=== PATIENT | male | born 1990 | race African-American/Black ===

== ENCOUNTER 2016-12-06 16:12 | Emergency (ER) | payer OTHER ==
[~2016-12-06] VITALS: Ht 175.3 cm; Wt 71.7 kg
[2016-12-06 16:18] VITALS: BP 132/77
[2016-12-06] MEDS: BUPIVACAINE 0.5% 50 ML VIAL. IJ ONE ×2 (16:53→18:38)
--- NOTE | 2016-12-06 17:08 | RAD ---
Right finger radiographs History: Smashed between 2 pieces of metal. Comparison: None. Findings: Frontal view of the right hand. Oblique and lateral views of the first digit of right hand (thumb). Acute obliquely oriented fracture is seen involving the distal shaft of the first toe phalanx. There is mild apex dorsal angulation of the fracture fragments. There is soft tissue irregularity of the first digit. Fracture is presumably open. Impression: Acute, angulated, open fracture of the first distal phalanx.
--- NOTE | 2016-12-06 17:17 | PHYS DOC ---
Past Medical History Past Medical History: No Pertinent History Past Surgical History: No Surgical History Additional Information: 0.25 PPD Alcohol Use: Occasionally Drug Use: None Adult General Chief Complaint Chief Complaint: LACERATION/AVULSION HPI HPI Patient is a 26 year old male who presents with right thumb laceration after crush injury at 1430 today. The patient was working at the [employer] when his thumb was crushed between 2 pieces of metal. He was seen at the [facility] medical office prior to arrival to emergency department. He had an x-ray taken and received a pain shot. They did not repair the laceration. His tetanus immunization is up-to-date. He does not have a PCP. Review of Systems Review of Systems Constitutional: Denies fever or chills. [] Musculoskeletal: Denies back pain or joint pain. Reports right thumb pain. Integument: Denies rash or skin lesions. Reports right thumb laceration. Neurologic: Denies focal weakness or sensory changes. [] Current Medications Current Medications Current Medications Medications (Trade) Dose Ordered Sig/Maliha Start Time Stop Time Status Last Admin Dose Admin Bupivacaine HCl (Marcaine 0.5%) 50 ml 1X ONCE 12/06/16 17:00 12/06/16 17:01 DC 12/06/16 16:53 50 ML Cefazolin Sodium (Ancef Im) 1 gm 1X ONCE 12/06/16 18:00 12/06/16 18:01 UNV Allergies Allergies Allergies Coded Allergies Type Severity Reaction Last Updated Verified No Known Drug Allergies 12/06/16 No Physical Exam Physical Exam Constitutional: Well developed, well nourished, no acute distress, non-toxic appearance. [] HENT: Normocephalic, atraumatic, oropharynx moist. [] Eyes: PERRLA, EOMI, conjunctiva normal, no discharge. [] Skin: Warm, dry, no erythema, no rash. There is a 2 cm laceration of the right thumb distal phalanx on the dorsal side without involvement of the nail. Extremities: Right thumb tenderness, no edema. The patient is unable to flex the distal phalanx of the thumb, raising concern for flexor tendon injury. 2 second capillary refill distally. Light touch sensation intact distally. Neurologic: Alert and oriented X 3, normal motor function, normal sensory function, no focal deficits noted. [] Psychologic: Affect normal, judgement normal, mood normal. [] Current Patient Data Vital Signs Vital Signs Date Time Temp Pulse Resp B/P Pulse Ox O2 Delivery O2 Flow Rate FiO2 12/06/16 16:18 99.5 98 12 132/77 98 Room Air 99.5 EKG EKG [] Radiology/Procedures Radiology/Procedures REASON: thumb smashed between 2 pieces of metal PROCEDURE: FINGER(S) RIGHT Right finger radiographs History: Smashed between 2 pieces of metal. Comparison: None. Findings: Frontal view of the right hand. Oblique and lateral views of the first digit of right hand (thumb). Acute obliquely oriented fracture is seen involving the distal shaft of the first toe phalanx. There is mild apex dorsal angulation of the fracture fragments. There is soft tissue irregularity of the first digit. Fracture is presumably open. Impression: Acute, angulated, open fracture of the first distal phalanx. Course & Med Decision Making Course & Med Decision Making Pertinent Labs and Imaging studies reviewed. (See chart for details) Patient presents with open fracture of the right thumb with flexor tendon injury. I spoke with Dr. Mireles in orthopedics here. He is unable to repair this due to the flexor tendon involvement. He recommends transfer to another hospital with hand surgery available. The patient is transferred to [facility]. He is accepted to the emergency department by Dr. Tena. Patient received a gram of Ancef in the emergency department here. He was provided with a disc of his x- rays and the images were uploaded to the cloud as well. The patient was instructed to go immediately to the emergency department. He verbalizes understanding and agrees with plan. Dragon Disclaimer Dragon Disclaimer This electronic medical record was generated, in whole or in part, using a voice recognition dictation system. Departure Departure Impression: Primary Impression: Open fracture of phalanx of thumb Disposition: 05 TRANSFER OTHER ([facility] ER) Condition: STABLE Referrals: NO PCP (PCP) Problem Qualifiers Primary Impression: Open fracture of phalanx of thumb Encounter type: initial encounter Phalanx: distal Fracture alignment: displaced Laterality: right Qualified Code: S62.521B - Displaced fracture of distal phalanx of right thumb, initial encounter for open fracture GABRIELA PECK Dec 06, 2016 17:17
[2016-12-06] MEDS ORDERED: CEFAZOLIN IM 1 GM VIAL. IM ONE (18:00)
== END 2016-12-06 18:48 | disposition short-term general hospital (02) ==
LOC: ER 16:12
DX: S62.521A Displaced fracture of distal phalanx of right thumb, initial encounter for closed fracture (principal); F17.200 Nicotine dependence, unspecified, uncomplicated; W23.0XXA Caught, crushed, jammed, or pinched between moving objects, initial encounter; Y93.89 Activity, other specified; Y99.8 Other external cause status; Y92.89 Other specified places as the place of occurrence of the external cause
CPT/HCPCS: 73140; 96372; 99285; J0690; J3490